=== PATIENT | female | born 1990 | race African-American/Black ===

== ENCOUNTER 2023-01-28 07:18 | Emergency (ER) | payer OTHER ==
[~2023-01-28] VITALS: Ht 157.5 cm; Wt 90.7 kg
== END 2023-01-28 10:43 | disposition home or self-care (01) ==
LOC: ER 07:18
DX: U07.1 COVID-19 (principal); K92.2 Gastrointestinal hemorrhage, unspecified; Z88.8 Allergy status to other drugs, medicaments and biological substances

== ENCOUNTER 2024-08-15 09:20 | Outpatient (CLI) | payer OTHER | END 2024-08-15 09:28 | disposition home or self-care (01) | LOC: TOM 09:20 | PROVIDERS: ATTEND Obstetrics & Gynecology | DX: R19.00 Intra-abdominal and pelvic swelling, mass and lump, unspecified site (principal) ==